=== PATIENT | male | born 1960 | race Caucasian/White ===

== ENCOUNTER 2022-04-20 11:34 | Emergency (ER) | payer OTHER, SELFPAY ==
[2022-04-20] VITALS (30 sets, daily range): BP systolic 124–155; BP diastolic 60–94; PULSE 86–105; RESP 16–40; TEMP 38.1–39; O2SAT 85–100
--- NOTE | ~2022-04-20 | XR_ITS ---
EXAMINATION: XR chest 2V DATE: 04/20/2022 12:38 INDICATION: Shortness of breath and chest tightness TECHNIQUE: PA and lateral views of the chest were obtained. COMPARISON: Chest radiograph dated 02/07/10 FINDINGS: Persistent bilateral perihilar bronchial wall thickening. No focal airspace opacities, pulmonary uche a, pleural effusion or pneumothorax. The cardiomediastinal silhouette is normal. Mild thoracic spondy losis. IMPRESSION: 1. Bilateral perihilar bronchial wall thickening without focal airspace opacities which could be seen with bronchitis, reactive airway disease/asthma or mild pulmonary edema. Reviewed, dictated and finalized at location A. ITALITY MANAGER IMPRESSION: 1. Bilateral perihilar bronchial wall thickening without focal airspace opaciti es which could be seen with bronchitis, reactive airway disease/asthma or mild pulmonary edema.
--- NOTE | 2022-04-20 11:52 | ECG_ITS ---
Measurements Intervals [place] Rate: 99 P: 2 NV: 128 QRS: 75 QRSD: 105 T: 53 QT: 327 QTc: 421 Interpretive Statements SINUS RHYTHM INCOMPLETE RIGHT BUNDLE BRANCH BLOCK BASELINE ARTIFACT- I, III, AVL, AVF, V4-V5 BORDERLINE ECG NO PREVIOUS ECG AVAILABLE FOR COMPARISON Electronically Signed On 04-20-2022 12:11:13 [employer] INTERN by Manny Frances D.O.
--- NOTE | 2022-04-20 12:46 | ED.SOB ---
HPI - SOB/Dyspnea General Chief Complaint: Shortness of Breath/Dyspnea Stated Complaint: annalee pneumonia again Time Seen by Provider: 04/20/22 12:01 History of Present Illness HPI Narrative: 61-year-old male presenting to the emergency department for evaluation of worsening cough and fever. Patient states symptoms just started yesterday. Patient reports he is a smoker. Patient states he has had his COVID vaccines along with influenza and pneumonia just a few days ago. Patient denies any chest pain. Patient denies any nausea vomit diarrhea. Related Data Allergies Allergy/AdvReac Type Severity Reaction Status Date / Time No Known Allergies Allergy Verified 10/06/18 09:21 Review of Systems Review of Systems: CONSTITUTIONAL: Denies fever, chills, or sweats. EYES: Denies visual changes, redness, or discharge. ENT: Denies rhinorrhea, congestion, sore throat, or otalgia. CARDIOVASCULAR: Denies chest pain, palpitations, or edema. RESPIRATORY: See HPI GASTROINTESTINAL: Denies abdominal pain, nausea, vomiting, or diarrhea. GENITOURINARY: Denies dysuria or hematuria. SKIN: Denies rash or itching. MUSCULOSKELETAL: Denies back pain, joint pain, or myalgia. NEUROLOGIC: Denies headache, numbness, or weakness. Exam Narrative: APPEARANCE: Well appearing, no pain, no distress, well-nourished. HEAD: normocephalic, atraumatic. EYES: PERRLA/EOMI, conjunctivae clear. NOSE: Normal no drainage EARS:TMS clear with good light reflex. THROAT: Pharynx clear, no exudate. NECK: Supple. No adenopathy, no masses. RESPIRATORY: Airway patent, respirations nonlabored. Minor wheeze. CARDIOVASCULAR: Regular rate and rhythm without murmurs rubs or gallops. ABDOMINAL: Soft, nontender, nondistended, normal bowel sounds MUSCULOSKELETAL: Moves all extremities. Strength/ROM intact, No edema, No calf tenderness. NEURO: Alert. Cranial nerves II through XII intact. Grossly intact SKIN: Warm, dry. Normal Color Course Course Emergency Course: Patient did test positive for influenza. Patient's x-ray was reviewed. Patient was able to ambulate in the emergency department with a stable pulse ox. Patient was updated on results of the work-up and was comfortable with the plan for discharge and close follow-up. Patient was treated for a COPD exacerbation but also provided Tamiflu for the influenza. Vital Signs Vital signs: Vital Signs Temperature 102.2 F H 04/20/22 11:51 Pulse Rate 105 H 04/20/22 11:51 Respiratory Rate 16 04/20/22 11:51 Blood Pressure 155/93 H 04/20/22 11:51 Pulse Oximetry 96 04/20/22 11:51 Oxygen Delivery Room Air 04/20/22 11:51 Temperature 100.5 F H 04/20/22 16:02 Pulse Rate 98 04/20/22 16:26 Respiratory Rate 17 04/20/22 16:26 Blood Pressure 135/60 04/20/22 16:01 Pulse Oximetry 100 04/20/22 16:26 Oxygen Delivery Room Air 04/20/22 11:51 MDM - SOB/Dyspnea Lab Data Attestation: I reviewed the patient's lab results. Result diagrams: 04/20/22 13:30 04/20/22 13:30 Labs: Lab Results 04/20/22 04/20/22 04/20/22 Range/Units 12:20 13:30 13:30 WBC 5.6 (4.5-10.0) K/mm3 RBC 4.72 (4.6-6.20) M/mm3 Hgb 14.2 (14.0-18.0) g/dL Hct 41.2 L (42.0-52.0) % MCV 87.3 (80-100) fl MCH 30.1 (26-34) pg MCHC 34.5 (32-36) g/dl RDW 12.6 (11.5-14.5) % Plt Count 166 (150-375) k/mm3 MPV 9.9 (7.4-10.4) fl Immature Gran % (Auto) 0.2 (0-0.5) % Neut % (Auto) 82.1 H (45.5-73.1) % Lymph % (Auto) 8.5 L (18.3-44.2) % [place] % (Auto) 8.5 (2.6-8.5) % Eos % (Auto) 0.2 (0-4.4) % Baso % (Auto) 0.5 (0.2-1.2) % Lymph # (Auto) 0.47 L (0.9-3.2) K/mm3 [place] # (Auto) 0.5 (0.1-0.6) K/mm3 Eos # (Auto) 0.0 (0-0.3) K/mm3 Baso # (Auto) 0.0 (0.0-0.1) K/mm3 Abs Immat Gran (auto) 0.01 (0.00-0.031) K/mm3 Absolute Neuts (auto) 4.6 (1.3-6.7) K/mm3 Absolute Nucleated RBC 0.0 (0.0-0.012) K/mm3 Nucleated RBC
[2022-04-20] MEDS: ALBUTEROL SULFATE NEB 2.5 MG/3 ML INH 5 MG INHALATION (13:02)
[2022-04-20 13:10] LABS: Influenza A QL RT-PCR Positive (Negative); Influenza B QL RT-PCR Negative (Negative); RSV RNA, RT-PCR Negative (Negative); SARS-CoV-2 RNA PCR Negative
--- NOTE | 2022-04-20 13:10 | PC.NURSE ---
multiple attempts at iv unsuccessful by several nurses unsuccessful
[2022-04-20 13:45] LABS: Basophils Percent Auto 0.5 % (0.2-1.2); Eosinophils Percent Auto 0.2 % (0-4.4); Hematocrit 41.2 % (42.0-52.0); Hemoglobin 14.2 g/dL (14.0-18.0); Immature Granulocyte Absolute 0.01 K/mm3 (0.00-0.031); Immature Granulocyte Percent A 0.2 % (0-0.5); Lymphocytes Absolute Auto 0.47 K/mm3 (0.9-3.2); Lymphocytes Percent Auto 8.5 % (18.3-44.2); Mean Corpuscular HGB Conc 34.5 g/dl (32-36); Mean Corpuscular Hemoglobin 30.1 pg (26-34); Mean Corpuscular Volume 87.3 fl (80-100); Mean Platelet Volume 9.9 fl (7.4-10.4); Monocytes Absolute Auto 0.5 K/mm3 (0.1-0.6); Monocytes Percent Auto 8.5 % (2.6-8.5); Neutrophils Absolute Auto 4.6 K/mm3 (1.3-6.7); Neutrophils Percent Auto 82.1 % (45.5-73.1); Platelet Count Result 166 k/mm3 (150-375); Red Blood Count 4.72 M/mm3 (4.6-6.20); Red Cell Distribution Width 12.6 % (11.5-14.5); White Blood Count 5.6 K/mm3 (4.5-10.0)
[2022-04-20 13:58] LABS: Alanine Aminotransferase 21 U/L (6-50); Albumin Level 4.5 g/dL (3.5-5.1); Alkaline Phosphatase 107 U/L (38-126); Anion Gap 10 mmol/L (8-16); Aspartate Amino Transferase 28 U/L (17-59); Bilirubin,Total 0.6 mg/dL (0.2-1.3); Blood Urea Nitrogen 15 mg/dL (9-20); Calcium 8.4 mg/dL (8.4-10.2); Carbon Dioxide 25 mmol/L (22-30); Chloride 98 mmol/L (98-107); Estimated CRCL calculation 78 ml/min; Estimated Glomerular Filt Rate > 60; Glucose 99 mg/dL (65-110); Potassium 3.8 mmol/L (3.4-5.0); Sodium 133 mmol/L (137-145)
[2022-04-20 13:59] LABS: Lactic Acid Reflex 1.8 mmol/L (0.7-2.0)
[2022-04-20] MEDS: predniSONE 40 MG, predniSONE 10 MG 50 MG PO (15:32)
[2022-04-20] MEDS: HYDROmorphone HCL INJ (*CRX) 1 MG/ML SYR 0.5 MG IV PUSH (15:33)
== END 2022-04-20 16:00 | disposition home or self-care (01) ==
PROVIDERS: Emergency Medicine; Emergency Provider Emergency Medicine; PCP Otolaryngology
DX: J10.1 Influenza due to other identified influenza virus with other respiratory manifestations (principal); J44.9 Chronic obstructive pulmonary disease, unspecified; Z20.822 Contact with and (suspected) exposure to COVID-19
CPT/HCPCS: 36415; 71046; 80053; 83605; 85025; 87040; 87637; 93005; 94640; 96365; 96375; 99284; J0131; J1170; J7512

== ENCOUNTER 2022-04-30 19:46 | Inpatient (IN) | payer OTHER, SELFPAY ==
--- NOTE | ~2022-04-30 | XR_ITS ---
XR chest 2V 04/30/2022 20:16 Indication: Cough and shortness of breath. Chest pain. Procedure: 2 view chest Comparison: 04/20/2022 Findings: Heart size normal. Right mid and lower airspace disease, compatible with pneumonia. No pleu ral effusion, edema or pneumothorax. No acute osseous abnormality. Impression: 1: Airspace disease right mid and lower lung, compatible with pneumonia Reviewed, dictated and finalized at location A. AY TRAFFIC CONTROLLER Impression: 1: Airspace disease right mid and lower lung, compatible with pneumonia
[2022-04-30 19:49] VITALS: BP 179/72; PULSE 103; RESP 18; TEMP 36.7; O2SAT 94
--- NOTE | 2022-04-30 19:53 | ECG_ITS ---
Measurements Intervals [place] [facility] Rate: 102 P: 63 LA: 138 QRS: 71 QRSD: 109 T: 50 QT: 316 QTc: 413 Interpretive Statements SINUS TACHYCARDIA POSSIBLE LEFT ATRIAL ENLARGEMENT [-0.1mV P WAVE IN V1/V2] BASELINE ARTIFACT IS PRESENT ABNORMAL RHYTHM ECG COMPARED TO ECG 04/20/2022 11:59:15 SINUS TACHYCARDIA NOW PRESENT Electronically Signed On 05-01-2022 10:18:49 HEAD MIXER by Amena Gabriel M.D.
[2022-04-30 20:37] VITALS: PULSE 89
--- NOTE | 2022-04-30 20:38 | PC.NURSE ---
Patient put on 2L oxygen via nasal cannula for comfort only. Patient's oxygen saturation within normal limits
--- NOTE | 2022-04-30 20:50 | ED.SOB ---
HPI - SOB/Dyspnea General Chief Complaint: Shortness of Breath/Dyspnea Stated Complaint: SOB Time Seen by Provider: 04/30/22 20:37 History of Present Illness HPI Narrative: This is a 61-year-old male without known significant past medical history, recently seen emergency department diagnosed with influenza A, returns emergency department complaining of cough productive of mucus, shortness of breath and some chest pain. He states he was at work when he became short of breath, associated with a sore type substernal chest pain without radiation. He denies any nausea or vomiting or lower extremity swelling. Related Data Allergies Allergy/AdvReac Type Severity Reaction Status Date / Time No Known Allergies Allergy Verified 10/06/18 09:21 Review of Systems Review of Systems: CONSTITUTIONAL: Denies fever, chills, or sweats. EYES: Denies visual changes, redness, or discharge. ENT: Rhinorrhea, congestion denies sore throat, or otalgia. CARDIOVASCULAR: Denies chest pain, palpitations, or edema. RESPIRATORY: cough and dyspnea. GASTROINTESTINAL: Denies abdominal pain, nausea, vomiting, or diarrhea. GENITOURINARY: Denies dysuria or hematuria. SKIN: Denies rash or itching. MUSCULOSKELETAL: Denies back pain, joint pain, or myalgia. NEUROLOGIC: Denies headache, numbness, dizziness, or weakness. PSYCHIATRIC: Denies anxiety or depression. PMFSH Social History Social History Smoking status: Former smoker Alcohol intake: never Substance use: never Exam Narrative: GENERAL: Well-developed, well-nourished, appears uncomfortable HEAD: Normocephalic, atraumatic. EYES: PERRLA and EOMI. ENT: Nares clear, no rhinorrhea or epistaxis. Mucous membranes moist. Oropharynx without tonsillar hypertrophy exudate or other lesions. NECK: Supple. No adenopathy or masses. No carotid bruits or JVD CHEST: Tachypneic with prolonged expiratory phase and end expiratory wheeze. No respiratory distress. No rales or rhonchi HEART: Regular rate and rhythm. No murmur heard. Normal peripheral pulses. ABDOMEN: Soft, nontender, nondistended, normal active bowel sounds. EXTREMITIES: Normal range of motion. No edema. SKIN: Warm, dry, no rash. NEURO: No focal deficits. Alert and oriented x3. PSYCH: Normal mood and affect. Course Course Emergency Course: 21:30 - Chest x-ray concerning for pneumonia. Reevaluated patient after nebs, he states he has only minimal improvement. Discussed patient with hospitalist, Dr. Bates who accepts admission. Vital Signs Vital signs: Vital Signs Temperature 98.1 F 04/30/22 19:49 Pulse Rate 103 H 04/30/22 19:49 Respiratory Rate 18 04/30/22 19:49 Blood Pressure 179/72 H 04/30/22 19:49 Pulse Oximetry 94 04/30/22 19:49 Temperature 98.1 F 04/30/22 19:49 Pulse Rate 92 04/30/22 23:15 Respiratory Rate 27 H 04/30/22 23:15 Blood Pressure 162/75 H 04/30/22 23:15 Pulse Oximetry 95 04/30/22 23:15 Oxygen Delivery Nasal Cannula 04/30/22 20:48 Oxygen Flow Rate 2 04/30/22 20:48 MDM - SOB/Dyspnea MDM Narrative Medical decision making narrative: Plan: Labs, imaging, nebs, EKG, troponin, reassess Differential Diagnosis Differential diagnosis: Likely acute exacerbation of chronic obstructive airways disease, community acquired pneumonia and other (Influenza, ACS, metabolic abnormality, other) Lab Data 04/30/22 21:02 04/30/22 21:02 Labs: Lab Results 04/30/22 04/30/22 04/30/22 Range/Units 21:02 21:02 22:19 WBC 14.9 H (4.5-10.0) K/mm3 RBC 4.23 L (4.6-6.20) M/mm3 Hgb 12.9 L (14.0-18.0) g/dL Hct 37.2 L (42.0-52.0) % MCV 87.9 (80-100) fl MCH 30.5 (26-34) pg MCHC 34.7 (32-36) g/dl RDW 12.5 (11.5-14.5) % Plt Count 285 D (150-375) k/mm3 MPV 9.0 (7.4-10.4) fl Immature Gran % (Auto) 0.9 H (0-0.5) % Neut % (Auto) 83.6 H (45.5-73.1) % Lymph % (
[2022-04-30] MEDS: ALBUTEROL SULFATE NEB 2.5 MG/3 ML INH 5 MG INHALATION (21:08)
[2022-04-30] MEDS: IPRATROPIUM BR 0.02% INH SOLN 0.5 MG/2.5 ML VIAL INHALATION (21:08)
[2022-04-30 21:09] VITALS: PULSE 90; RESP 21
[2022-04-30 21:16] LABS: Basophils Percent Auto 0.3 % (0.2-1.2); Eosinophils Absolute Auto 0.1 K/mm3 (0-0.3); Eosinophils Percent Auto 0.4 % (0-4.4); Hematocrit 37.2 % (42.0-52.0); Hemoglobin 12.9 g/dL (14.0-18.0); Immature Granulocyte Absolute 0.14 K/mm3 (0.00-0.031); Immature Granulocyte Percent A 0.9 % (0-0.5); Lymphocytes Absolute Auto 1.15 K/mm3 (0.9-3.2); Lymphocytes Percent Auto 7.7 % (18.3-44.2); Mean Corpuscular HGB Conc 34.7 g/dl (32-36); Mean Corpuscular Hemoglobin 30.5 pg (26-34); Mean Corpuscular Volume 87.9 fl (80-100); Monocytes Absolute Auto 1.1 K/mm3 (0.1-0.6); Monocytes Percent Auto 7.1 % (2.6-8.5); Neutrophils Absolute Auto 12.5 K/mm3 (1.3-6.7); Neutrophils Percent Auto 83.6 % (45.5-73.1); Platelet Count Result 285 k/mm3 (150-375); Red Blood Count 4.23 M/mm3 (4.6-6.20); Red Cell Distribution Width 12.5 % (11.5-14.5); White Blood Count 14.9 K/mm3 (4.5-10.0)
[2022-04-30 21:24] LABS: Alanine Aminotransferase 21 U/L (6-50); Albumin Level 3.5 g/dL (3.5-5.1); Alkaline Phosphatase 84 U/L (38-126); Anion Gap 7 mmol/L (8-16); Aspartate Amino Transferase 20 U/L (17-59); Bilirubin,Total 0.5 mg/dL (0.2-1.3); Blood Urea Nitrogen 13 mg/dL (9-20); Calcium 8.3 mg/dL (8.4-10.2); Carbon Dioxide 28 mmol/L (22-30); Chloride 98 mmol/L (98-107); Estimated CRCL calculation 87 ml/min; Estimated Glomerular Filt Rate > 60; Glucose 204 mg/dL (65-110); Potassium 3.7 mmol/L (3.4-5.0); Sodium 133 mmol/L (137-145)
[2022-04-30 21:27] VITALS: PULSE 92; RESP 16
[2022-04-30 21:36] LABS: Troponin I < 0.012 ng/mL (0.000-0.034)
--- NOTE | 2022-04-30 21:42 | PM.IMHP ---
H&P: HPI History of Present Illness Date/Time: 04/30/22 21:42 Chief Complaint: 61 years old with recent history of influenza diagnosed on 04/20/2022 patient was complaining of cough started 11 days ago worsening gradually associated with shortness of breath came to the ER was found to have influenza was given Tamiflu prednisone and albuterol inhaler patient continued to feel worse continued to have shortness of breath worsening gradually associated with wheezing and cough patient currently short of breath at rest requiring 2 L of oxygen at home patient is not on any oxygen chest x-ray showed pneumonia patient will be admitted to the hospital for further evaluation and treatment of pneumonia COPD exacerbation Review of Systems Review of Systems: Twelve system review was done negative except above [facility] Social History Social History Smoking status: Former smoker Alcohol intake: never Substance use: never Meds Home Medications and Allergies Home Medications Medication Instructions Recorded Confirmed Type albuterol sulfate 90 mcg/actuation 1 inh inhalation QID PRN shortness 04/20/22 Rx aerosol inhaler of breath or wheezing #6.7 grams benzonatate 100 mg capsule 100 mg PO Q6H PRN cough #14 caps 04/20/22 Rx oseltamivir 75 mg capsule (Tamiflu) 75 mg PO Q12H 5 days #10 caps 04/20/22 Rx prednisone 50 mg tablet 50 mg PO DAILY #5 tabs 04/20/22 Rx Allergies Allergy/AdvReac Type Severity Reaction Status Date / Time No Known Allergies Allergy Verified 10/06/18 09:21 Vital Signs Vital Signs - 24 hr 04/30/22 19:49 04/30/22 20:37 04/30/22 20:48 Temperature 98.1 F Pulse Rate 103 H 89 Respiratory Rate 18 Blood Pressure 179/72 H Pulse Oximetry 94 Oxygen Delivery Nasal Cannula Oxygen Flow Rate 2 04/30/22 21:09 04/30/22 21:27 Temperature Pulse Rate 90 92 Respiratory Rate 21 H 16 Blood Pressure Pulse Oximetry Oxygen Delivery Oxygen Flow Rate Exam Narrative: GENERAL: , in acute respiratory distress HEAD: Normocephalic, atraumatic. NECK: Supple. No adenopathy, no masses. RESPIRATORY: Airway patent, respirations nonlabored. Clear to auscultation bilaterally, no rales, rhonchi, wheezing. CARDIOVASCULAR: Regular rate and rhythm without murmurs, rubs, or gallops. Peripheral pulses 2+ and equal bilaterally. ABDOMINAL: Decreased air entry bilateral bilateral wheeze and crackles MUSCULOSKELETAL: Moves all extremities. SKIN: Warm, dry, normal color. No rashes. NEURO: A&O X3. Nonfocal PSYCHIATRIC: Appropriate mood and affect. Normal interaction. H&P: Results Labs Labs: Short CBC 04/30/22 Range/Units 21:02 WBC 14.9 H (4.5-10.0) K/mm3 Hgb 12.9 L (14.0-18.0) g/dL Hct 37.2 L (42.0-52.0) % Plt Count 285 D (150-375) k/mm3 BMP 04/30/22 21:02 Sodium 133 L Potassium 3.7 Chloride 98 Carbon Dioxide 28 BUN 13 Creatinine 0.80 Glucose 204 H Calcium 8.3 L Cardiac Enzymes 04/30/22 Range/Units 21:02 Troponin I < 0.012 (0.000-0.034) ng/mL Liver Function 04/30/22 Range/Units 21:02 Total Bilirubin 0.5 (0.2-1.3) mg/dL AST 20 (17-59) U/L ALT 21 (6-50) U/L Alkaline Phosphatase 84 (38-126) U/L Albumin 3.5 (3.5-5.1) g/dL Assessment and Plan Assessment and plan (1) Influenza A: Code(s): J10.1 - Influenza due to other identified influenza virus with other respiratory manifestations Status: Acute Assessment and Plan: Completed course of Tamiflu Conservative management nebulizer treatment steroid (2) Pneumonia: Code(s): J18.9 - Pneumonia, unspecified organism Status: Acute Assessment and Plan: Probable secondary bacterial infection will give IV Rocephin IV doxycycline get sputum culture blood culture (3) COPD exacerbation: Code(s): J44.1 - Chronic obstructive pulmonary disease with (acute) exacerbation
[2022-04-30 22:29] VITALS: BP 148/75; PULSE 91; RESP 18; O2SAT 98
[2022-04-30 23:15] VITALS: BP 162/75; PULSE 92; RESP 27; O2SAT 95
[2022-04-30 23:55] LABS: Procalcitonin 0.1 ng/mL
[2022-05-01] VITALS (19 sets, daily range): BP systolic 120–152; BP diastolic 48–71; PULSE 73–95; RESP 14–26; TEMP 36.2–37; O2SAT 92–100; BMI 25.4
[2022-05-01 00:04] LABS: SARS-CoV-2 RNA PCR Negative
--- NOTE | 2022-05-01 00:59 | ADMGEN ---
This patient, Cesar Amezquita, was admitted to 3 [facility] Surg Room 332-02. Patient/family oriented to hospital policies and general routines including ID bracelet, bed and alarms, visiting hours, pain management, procedures, bathroom and other care routines, personal items, smoking policy, room service/diet, and visiting hours. Information on how to activate the Rapid Response Team has been discussed. Patient/Family are encouraged to report perceived risks to care and to ask questions if they do not understand what they are told or what they should do.
[2022-05-01] MEDS: SODIUM CHLORIDE 0.9% IV 1,000 ML 100 ML IV CONT ×2 (01:07→11:50)
--- NOTE | 2022-05-01 01:41 | PC.NURSE ---
RN acknowledges order for telemetry; Provider did not initially admit to med/tele-currently no monitors available on unit. automatic machines supervisor notified.
[2022-05-01] MEDS: methylPREDNISolone SOD SUCC 40 MG VIAL IV PUSH ×3 (02:16→17:39)
[2022-05-01] MEDS: IPRATROPIUM BR 0.02% INH SOLN 0.5 MG/2.5 ML VIAL INHALATION ×3 (02:30→14:20)
[2022-05-01] MEDS: ALBUTEROL SULFATE NEB 2.5 MG/3 ML INH INHALATION ×3 (02:30→14:20)
[2022-05-01 07:02] LABS: Basophils Percent Auto 0.3 % (0.2-1.2); Eosinophils Percent Auto 0.1 % (0-4.4); Hemoglobin 12.2 g/dL (14.0-18.0); Immature Granulocyte Absolute 0.15 K/mm3 (0.00-0.031); Lymphocytes Absolute Auto 0.64 K/mm3 (0.9-3.2); Lymphocytes Percent Auto 4.3 % (18.3-44.2); Mean Corpuscular HGB Conc 33.9 g/dl (32-36); Mean Corpuscular Hemoglobin 29.3 pg (26-34); Mean Corpuscular Volume 86.3 fl (80-100); Mean Platelet Volume 9.2 fl (7.4-10.4); Monocytes Absolute Auto 0.5 K/mm3 (0.1-0.6); Neutrophils Absolute Auto 13.6 K/mm3 (1.3-6.7); Neutrophils Percent Auto 91.3 % (45.5-73.1); Platelet Count Result 309 k/mm3 (150-375); Red Blood Count 4.17 M/mm3 (4.6-6.20); Red Cell Distribution Width 12.4 % (11.5-14.5); White Blood Count 14.9 K/mm3 (4.5-10.0)
--- NOTE | 2022-05-01 07:12 | PM.IMPN ---
Progress Note: A&P Assessment and Plan (1) Influenza A: Code(s): J10.1 - Influenza due to other identified influenza virus with other respiratory manifestations Status: Acute Assessment and Plan: Completed course of Tamiflu x 5 days and 10 days post start of symptoms. Continue supportive care. Conservative management nebulizer treatment (2) Pneumonia: Qualifiers: Pneumonia type: due to unspecified organism Laterality: right Lung location: unspecified part of lung Qualified Code(s): J18.9 - Pneumonia, unspecified organism Code(s): J18.9 - Pneumonia, unspecified organism Status: Acute Assessment and Plan: Probable secondary bacterial infection following pneumonia. Continue IV antibiotics. MRSA nasal swab pending. sputum culture ordered and awaiting collection. blood culture pending. (3) COPD exacerbation: Code(s): J44.1 - Chronic obstructive pulmonary disease with (acute) exacerbation Status: Suspected Assessment and Plan: Presumed COPD exacerbation. He is a chronic smoker for more than 36 years. No formal PFTs and diagnosis is available. He has not seen a doctor in 18 years. Continue scheduled short-acting bronchodilator nebulizer treatment Continue IV solu-medrol Continue empiric IV antibiotics Mucinex BID (4) Acute respiratory failure with hypoxia: Code(s): J96.01 - Acute respiratory failure with hypoxia Status: Acute Assessment and Plan: Require 3 L of oxygen upon admission. This is most likely secondary to influenza, secondary bacterial pneumonia and probable COPD exacerbation Continue medical management as above. Wean O2 as tolerated to keep sats>92% (5) Tobacco dependence: Code(s): F17.200 - Nicotine dependence, unspecified, uncomplicated Status: Chronic Assessment and Plan: He reports he is a current smoker, but wants to quit. He has smoked at least 1 ppd for over 36 years. Smoking cessation counseling given for 5 minutes Plan CODE STATUS: FULL CODE Disposition: Observation. Estimated LOS >2 days Discharge destination: home when medically stable. Time Spent With Patient Time with patient: 25 - 35 minutes Subjective Date/time seen: 05/01/22 07:12 His breathing is somewhat better today. He still has dyspnea with minimal movement and exertion. He has a cough with nasty-looking sputum. He reports a desire to quit smoking. His appetite is not yet back to normal. No diarrhea, abd pain, N/V, chest pain, palpitations or dizziness. He reports taking and completing the pills he received from his last ED visit but does not think they helped. He states his breathing felt workse yesterday when he went to work. 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 Review of Systems Review of Systems: All systems reviewed & are unremarkable except as noted in HPI and below Exam Narrative: GENERAL: in no acute respiratory distress. Adult male sitting up in bed. O2 2L NC. HEENT: Normocephalic, atraumatic. Sclera anicteric. Pupils equal and round. Grossly normal hearing. Mucous membranes moist. NECK: Supple. No adenopathy, no masses. No JVD. RESPIRATORY: Airway patent, respirations 24 bpm. Lung sounds diminished with fine crackles RLL and RML. Scattered wheezing in all [place]. Prolonged expiratory phase. CARDIOVASCULAR: Regular rate and rhythm without murmurs, rubs, or gallops. Peripheral pulses 2+ and equal bilaterally. ABDOMINAL: Soft, round and nontender to palpation. Bowel sounds present in all quadrants. MUSCULOSKELETAL: Moves all extremities equally. Grossly normal ROM. No edema. SKIN: Warm, dry, normal color. No rashes. NEURO: A&O X3. No focal deficits. CN 2-12 grossly intact. PSYCHIATRIC: Appropriate mood and affect. Normal interaction. Objective Data Vital Signs Vital Signs: Vital Signs - 24 hr 04/30/22 19:49 04/30/22 20:37 04/30/22 20:48 Temperature 98.1 F Pulse Rate 103 H 89 Respirato
[2022-05-01 07:14] LABS: Alanine Aminotransferase 20 U/L (6-50); Albumin Level 3.5 g/dL (3.5-5.1); Alkaline Phosphatase 98 U/L (38-126); Anion Gap 9 mmol/L (8-16); Aspartate Amino Transferase 20 U/L (17-59); Bilirubin,Total 0.5 mg/dL (0.2-1.3); Blood Urea Nitrogen 10 mg/dL (9-20); Calcium 8.1 mg/dL (8.4-10.2); Carbon Dioxide 25 mmol/L (22-30); Chloride 100 mmol/L (98-107); Estimated CRCL calculation 102 ml/min; Estimated Glomerular Filt Rate > 60; Glucose 126 mg/dL (65-110); Potassium 3.8 mmol/L (3.4-5.0); Sodium 134 mmol/L (137-145)
[2022-05-01] MEDS: FAMOTIDINE 20 MG TABLET PO ×2 (10:00→21:15)
[2022-05-01] MEDS: guaiFENesin 12 HR 600 MG TABCR PO ×2 (10:00→21:15)
[2022-05-01] MEDS: ENOXAPARIN 40 MG/0.4 ML SYRINGE SUB-Q (11:51)
[2022-05-01] MEDS: cefTRIAXone 2 GM in SODIUM CHLORIDE 0.9% IV 100 ML 200 ML IVPB (21:15)
[2022-05-02] VITALS (9 sets, daily range): BP systolic 142–162; BP diastolic 62–66; PULSE 60–83; RESP 14–20; TEMP 36.1–36.5; O2SAT 93–97
[2022-05-02] MEDS: methylPREDNISolone SOD SUCC 40 MG VIAL IV PUSH (01:43)
[2022-05-02] MEDS: ALBUTEROL SULFATE NEB 2.5 MG/3 ML INH INHALATION ×2 (02:49→08:56)
[2022-05-02] MEDS: IPRATROPIUM BR 0.02% INH SOLN 0.5 MG/2.5 ML VIAL INHALATION ×2 (02:49→08:56)
--- NOTE | 2022-05-02 07:37 | PM.IMPN ---
Progress Note: A&P Assessment and Plan (1) Pneumonia: Qualifiers: Laterality: right Lung location: unspecified part of lung Pneumonia type: due to unspecified organism Qualified Code(s): J18.9 - Pneumonia, unspecified organism Code(s): J18.9 - Pneumonia, unspecified organism Status: Acute Assessment and Plan: secondary bacterial infection following influenza. Treated with IV Rocephin and IV Vancomycin. Improving. Transition to oral Azithromycin x5 days and oral Augmentin x 5 days for common antimicrobial coverage. MRSA nasal swab negative. sputum culture mixed rai to date. blood culture negative to date. (2) Influenza A: Code(s): J10.1 - Influenza due to other identified influenza virus with other respiratory manifestations Status: Acute Assessment and Plan: Completed course of Tamiflu x 5 days and 11 days post start of symptoms. Continue supportive care. Conservative management nebulizer treatment (3) COPD exacerbation: Code(s): J44.1 - Chronic obstructive pulmonary disease with (acute) exacerbation Status: Suspected Assessment and Plan: Presumed COPD exacerbation. He is a chronic smoker for more than 36 years. No formal PFTs and diagnosis is available. He has not seen a doctor in 18 years. Continue scheduled short-acting bronchodilator nebulizer treatment Continue IV solu-medrol Q12 for today, then change to prednisone 40 mg PO daily tomorrow 05/03/22 and complete 5 day steroid course Continue empiric antibiotics for pneumonia Mucinex BID (4) Acute respiratory failure with hypoxia: Code(s): J96.01 - Acute respiratory failure with hypoxia Status: Acute Assessment and Plan: Require 3 L of oxygen upon admission. This is most likely secondary to influenza, secondary bacterial pneumonia and probable COPD exacerbation Continue medical management as above. Wean O2 as tolerated to keep sats>92%. Weaned to room air. Monitor spO2 intermittently at rest and with activity. (5) Tobacco dependence: Code(s): F17.200 - Nicotine dependence, unspecified, uncomplicated Status: Chronic Assessment and Plan: He reports he is a current smoker, but wants to quit. He has smoked at least 1 ppd for over 36 years. Smoking cessation counseling given for 5 minutes Plan CODE STATUS: FULL CODE Disposition: Observation. Probable discharge tomorrow if still improving. Discharge destination: home when medically stable. Time Spent With Patient Time with patient: 15 - 25 minutes Subjective Date/time seen: 05/02/22 07:37 His breathing is improving. He is off oxygen, but still feels winded and lightheaded with exertion. He was lightheaded in the shower as well. No chest pain, palpitations, MEYERS, sore throat, N/V/D or abdominal pain. He still has a productive cough that is improving. Review of Systems Review of Systems: All systems reviewed & are unremarkable except as noted in HPI and below Exam Narrative: GENERAL: in no acute respiratory distress. sitting up in bed. O2 2L NC. HEENT: Normocephalic, Sclera anicteric. Pupils equal and round. Mucous membranes moist. NECK: Supple. No adenopathy. RESPIRATORY: Airway patent, respirations regular at rest. Lung sounds diminished with fine crackles RLL and RML. Improved air entry. Faint expiratory wheeze RLL. Prolonged expiratory phase. CARDIOVASCULAR: Regular rate and rhythm normal S1 and S2 without murmurs, rubs, or gallops. Peripheral pulses 2+ and equal bilaterally. ABDOMINAL: Soft, round and nontender to palpation. Bowel sounds present in all quadrants. MUSCULOSKELETAL: Moves all extremities equally. Grossly normal ROM. No edema, erythema or calf tenderness. SKIN: Warm, dry, normal color. No rashes. NEURO: A&O X3. No focal deficits. PSYCHIATRIC: Appropriate mood and affect. Objective Data Vital Signs Vital Signs: Vital Signs - 24 hr 05/01/22 09:54 05/01/22 09
[2022-05-02 11:52] LABS: Basophils Percent Auto 0.2 % (0.2-1.2); Hematocrit 39.4 % (42.0-52.0); Hemoglobin 13.3 g/dL (14.0-18.0); Immature Granulocyte Absolute 0.19 K/mm3 (0.00-0.031); Immature Granulocyte Percent A 1.3 % (0-0.5); Lymphocytes Absolute Auto 1.03 K/mm3 (0.9-3.2); Mean Corpuscular HGB Conc 33.8 g/dl (32-36); Mean Corpuscular Hemoglobin 29.6 pg (26-34); Mean Corpuscular Volume 87.6 fl (80-100); Mean Platelet Volume 9.2 fl (7.4-10.4); Neutrophils Absolute Auto 12.5 K/mm3 (1.3-6.7); Neutrophils Percent Auto 84.5 % (45.5-73.1); Platelet Count Result 355 k/mm3 (150-375); Red Cell Distribution Width 12.5 % (11.5-14.5); White Blood Count 14.8 K/mm3 (4.5-10.0)
[2022-05-02 12:03] LABS: Alanine Aminotransferase 25 U/L (6-50); Albumin Level 3.9 g/dL (3.5-5.1); Alkaline Phosphatase 87 U/L (38-126); Anion Gap 10 mmol/L (8-16); Aspartate Amino Transferase 21 U/L (17-59); Bilirubin,Total 0.2 mg/dL (0.2-1.3); Blood Urea Nitrogen 18 mg/dL (9-20); Calcium 8.9 mg/dL (8.4-10.2); Carbon Dioxide 24 mmol/L (22-30); Chloride 103 mmol/L (98-107); Estimated CRCL calculation 90 ml/min; Estimated Glomerular Filt Rate > 60; Glucose 162 mg/dL (65-110); Potassium 4.1 mmol/L (3.4-5.0); Sodium 137 mmol/L (137-145)
[2022-05-02] MEDS: guaiFENesin 12 HR 600 MG TABCR PO ×2 (12:12→21:42)
[2022-05-02] MEDS: ENOXAPARIN 40 MG/0.4 ML SYRINGE SUB-Q (12:12)
[2022-05-02] MEDS: FAMOTIDINE 20 MG TABLET PO ×2 (12:12→21:43)
[2022-05-02 12:59] LABS: Vancomycin Trough 11.4 ug/mL (10.0-20.0)
[2022-05-02] MEDS: AZITHROMYCIN 250 MG TABLET 500 MG PO (14:00)
[2022-05-02] MEDS: AMOXICILLIN/CLAVULANATE K 875-125 MG TAB 1 TABLET PO (21:42)
[2022-05-03 05:44] VITALS: BP 150/81; PULSE 74; RESP 16; TEMP 36.4; O2SAT 99
[2022-05-03 08:18] LABS: Alanine Aminotransferase 24 U/L (6-50); Albumin Level 3.6 g/dL (3.5-5.1); Alkaline Phosphatase 70 U/L (38-126); Anion Gap 5 mmol/L (8-16); Aspartate Amino Transferase 25 U/L (17-59); Basophils Absolute Auto 0.1 K/mm3 (0.0-0.1); Basophils Percent Auto 0.5 % (0.2-1.2); Bilirubin,Total 0.5 mg/dL (0.2-1.3); Blood Urea Nitrogen 17 mg/dL (9-20); Calcium 8.4 mg/dL (8.4-10.2); Carbon Dioxide 27 mmol/L (22-30); Chloride 100 mmol/L (98-107); Eosinophils Percent Auto 0.3 % (0-4.4); Estimated CRCL calculation 90 ml/min; Estimated Glomerular Filt Rate > 60; Glucose 75 mg/dL (65-110); Hematocrit 40.7 % (42.0-52.0); Hemoglobin 13.1 g/dL (14.0-18.0); Immature Granulocyte Absolute 0.12 K/mm3 (0.00-0.031); Immature Granulocyte Percent A 1.3 % (0-0.5); Immature Platelet Fraction Pct 3.9 % (0.9-11.2); Lymphocytes Absolute Auto 1.69 K/mm3 (0.9-3.2); Lymphocytes Percent Auto 17.9 % (18.3-44.2); Mean Corpuscular HGB Conc 32.2 g/dl (32-36); Mean Corpuscular Hemoglobin 29.4 pg (26-34); Mean Corpuscular Volume 91.5 fl (80-100); Monocytes Absolute Auto 0.9 K/mm3 (0.1-0.6); Monocytes Percent Auto 9.5 % (2.6-8.5); Neutrophils Absolute Auto 6.7 K/mm3 (1.3-6.7); Neutrophils Percent Auto 70.5 % (45.5-73.1); Platelet Count Result 304 k/mm3 (150-375); Red Blood Count 4.45 M/mm3 (4.6-6.20); Red Cell Distribution Width 12.7 % (11.5-14.5); Sodium 132 mmol/L (137-145); White Blood Count 9.4 K/mm3 (4.5-10.0)
[2022-05-03] MEDS: FAMOTIDINE 20 MG TABLET PO (08:29)
[2022-05-03] MEDS: guaiFENesin 12 HR 600 MG TABCR PO (08:29)
[2022-05-03] MEDS: predniSONE 20 MG TABLET 40 MG PO (08:29)
[2022-05-03] MEDS: AZITHROMYCIN 250 MG TABLET PO ×2 (08:29→11:29)
[2022-05-03] MEDS: AMOXICILLIN/CLAVULANATE K 875-125 MG TAB 1 TABLET PO (08:29)
[2022-05-03] MEDS: ENOXAPARIN 40 MG/0.4 ML SYRINGE SUB-Q (08:33)
--- NOTE | 2022-05-03 10:46 | PM.DS ---
DS: Admitting Diagnosis Discharge Date 05/03/22 1046 Admitting Diagnosis Influenza APneumonia COPD exacerbation Acute respiratory failure with hypoxia DS: Discharge Diagnosis Discharge Diagnosis (1) Pneumonia: Qualifiers: Laterality: right Lung location: unspecified part of lung Pneumonia type: due to unspecified organism Qualified Code(s): J18.9 - Pneumonia, unspecified organism Code(s): J18.9 - Pneumonia, unspecified organism Status: Acute Assessment and Plan: secondary bacterial infection following influenza pneumonia. Treated with IV Rocephin and IV Vancomycin. Improving. Transitioned to oral Azithromycin x5 days and oral Augmentin x 5 days for common antimicrobial coverage. MRSA nasal swab negative. sputum culture mixed rai to date. blood culture negative to date. (2) Influenza A: Code(s): J10.1 - Influenza due to other identified influenza virus with other respiratory manifestations Status: Acute Assessment and Plan: Completed course of Tamiflu x 5 days and 11 days post start of symptoms. Given supportive care with mucolytics and analgesics treated with nebulizer treatment (3) COPD exacerbation: Code(s): J44.1 - Chronic obstructive pulmonary disease with (acute) exacerbation Status: Suspected Assessment and Plan: Presumed COPD exacerbation. He is a chronic smoker for more than 36 years. No formal PFTs and diagnosis is available. He has not seen a doctor in 18 years. Continue scheduled short-acting bronchodilator nebulizer treatment Initiated on IV solu-medrol Q12 and then changed to prednisone 40 mg PO daily on 05/03/22 and complete 5 day steroid course Continued empiric antibiotics for pneumonia Mucinex BID (4) Acute respiratory failure with hypoxia: Code(s): J96.01 - Acute respiratory failure with hypoxia Status: Acute Assessment and Plan: Required 3 L of oxygen upon admission. This is most likely secondary to influenza, secondary bacterial pneumonia and probable COPD exacerbation Continue medical management as above. Continued O2 as tolerated to keep sats>92%. Weaned to room air with stable spO2 at rest and with activity. (5) Tobacco dependence: Code(s): F17.200 - Nicotine dependence, unspecified, uncomplicated Status: Chronic Assessment and Plan: He is a current smoker, but wants to quit. He has smoked at least 1 ppd for over 36 years. Smoking cessation counseling given for 5 minutes DS: Summary Hospital Course Reason for hospitalization: shortness of breath Hospital Course: Cesar Amezquita is a 61 years old with recent history of influenza diagnosed on 04/20/2022 in our ER, he was given Tamiflu, prednisone and albuterol inhaler then discharged home. He presented to the ED this time for persistent cough and worsening shortness of breath. He continued to have shortness of breath associated with wheezing. In the ED, he required 2-3 L of oxygen. He does not use oxygen at home. He had associated sore throat, substernal chest pain without radiation, and sputum production.? He denied nausea, vomiting or lower extremity swelling. A chest x-ray suggested pneumonia. Lab work showed WBC 14.8 and nonfasting glucose 204. He was referred for management of bacterial pneumonia, hypoxia and suspected COPD exacerbation. He was treated with IV rocephin and IV vancomycin. This was transitioned to oral augmentin and azithromycin for atypical coverage x 5 days. Prednisone and duonebs scheduled were continued. He was counseled to quit smoking. Wheezing and shortness of breath improved by discharge and he was weaned to room air with spO2>92% at rest and with activity. The patient does not have a PCP and was counseled to obtain one for health management. Fasting glucose was 75 to 126 mg/dL. He was discharged home on oral antibiotics and in stable condition. Status at Discharge Cognitive/behavioral status at
== END 2022-05-03 12:05 | disposition home or self-care (01) | DRG 193 ==
LOC: ANHED 22:15 → ANH3MEDSUR 05-01 00:42
PROVIDERS: Emergency Medicine; Admitting Provider Internal Medicine; Emergency Provider Preventive Medicine Aerospace Medicine; Visit Provider Nurse Practitioner Family
DX: J10.08 Influenza due to other identified influenza virus with other specified pneumonia (principal); J96.01 Acute respiratory failure with hypoxia; J15.9 Unspecified bacterial pneumonia; J44.0 Chronic obstructive pulmonary disease with (acute) lower respiratory infection; J44.1 Chronic obstructive pulmonary disease with (acute) exacerbation; F17.210 Nicotine dependence, cigarettes, uncomplicated; Z20.822 Contact with and (suspected) exposure to COVID-19
CPT/HCPCS: 36415; 71046; 80053; 80202; 84145; 84484; 85025; 85055; 87040; 87070; 87081; 87205; 93005; 94640; 96361; 96365; 96366; 96372; 96374; 96375; 96376; 99285; A9270; G0378; J0456; J0696; J1650; J2920; J3370; J7030; J7512; U0003; U0005

== ENCOUNTER 2023-10-25 12:22 | Emergency (ER) | payer OTHER, SELFPAY ==
[2023-10-25 12:24] VITALS: BP 184/74; PULSE 73; RESP 18; TEMP 36.5; O2SAT 98
--- NOTE | 2023-10-25 14:26 | ED.EXTPRO ---
HPI - Extremity Problem General Chief complaint: Extremity Problem,Nontraumatic Stated complaint: R arm pain Time Seen by Provider: 10/25/23 14:09 History of Present Illness HPI Narrative: Patient is a 63-year-old male who presents to the emergency department this afternoon complaining of some swelling and redness to his right forearm. Patient states that he noticed the symptoms approximately 3 weeks ago and states that he had something similar to his left forearm but that healed on its own. The redness and swelling on his right forearm has not healed. Patient states that a week ago it actually looked much worse and was way more swollen and has improved since. Right forearm does have some your edema and clear/yellow drainage consistent with cellulitis/abscess. 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 Patient also admits that he has been scratching this area a lot which may have precipitated the symptoms he denies any fevers or chills at home. Denies any history of IV drug use. Patient denies any additional symptoms or concerns at this time. Related Data Allergies Allergy/AdvReac Type Severity Reaction Status Date / Time No Known Allergies Allergy Verified 10/25/23 13:52 Review of Systems Review of Systems: All systems are reviewed and are negative unless stated otherwise in the HPI. [facility] Past Medical History Medical History Kidney stones Tobacco dependence Family History Family History Daughter Diabetes mellitus Mother Diabetes mellitus Father Cancer Sibling Cancer Social History Social History Smoking packs per day: 3.5 Smoking cigarettes per day: 70.0 Years smoked: 50 Smoking pack-years: 175.00 Smoking status: Current every day smoker Tobacco type: cigarettes Alcohol intake: current Alcohol use details: rarely Substance use: never Substance use type: does not use Lack of Transportation: No Lack of Food: Never True Current Housing: I Have Housing Concerned About Future Housing: No Difficulty Paying Gas/Electric Bills: No Difficulty Paying for Meds: No Currently Unemployed: No Education: High School Diploma/GED Difficulty w/ Childcare or Family Care: No Living arrangements: with family Additional living arrangements comments: Sister Occupation/Education: occupation Gender identity (if verbalized by the patient): Male Spiritual care concerns: No Agree to blood products: Yes Exam Narrative: General: Alert, awake, afebrile, in no acute distress. HEENT: PERRL, no rhinorrhea, no post nasal drip, oropharynx clear. Cardiovascular: Regular rate and rhythm, no murmurs, rubs or gallops, no peripheral edema. Respiratory: Clear to auscultation bilaterally, no tachypnea, no wheezing, no rhonchi, no rubs, no respiratory distress. Abdomen: Soft, nontender, nondistended, no rebound, no guarding, no peritoneal signs. Musculoskeletal: Area of erythema with some clear/yellow drainage along the patient's right forearm measuring approximately 3 x 3 in. Patient is neurovascularly intact, intact right radial and ulnar pulses. Skin: No rashes or petechia, no signs of infection. Neurological: Alert and oriented to person, place, and time. Follows all commands. No focal deficits, speech is clear and fluent. Course Vital Signs Vital signs: Vital Signs Temperature 97.7 F 10/25/23 12:24 Pulse Rate 73 10/25/23 12:24 Respiratory Rate 18 10/25/23 12:24 Blood Pressure 184/74 H 10/25/23 12:24 Pulse Oximetry 98 10/25/23 12:24 Oxygen Delivery Room Air 10/25/23 12:24 Temperature 97.7 F 10/25/23 12:24 Pulse Rate 73 10/25/23 12:24 Respiratory Rate 18 10/25/23 12:24 Blood Pressure 184/74 H 10/24
== END 2023-10-25 14:36 | disposition home or self-care (01) ==
LOC: ANHED 14:30
PROVIDERS: Emergency Provider Emergency Medicine; PCP Family Medicine
DX: L03.113 Cellulitis of right upper limb (principal); F17.210 Nicotine dependence, cigarettes, uncomplicated; Z87.442 Personal history of urinary calculi
CPT/HCPCS: 99283

== ENCOUNTER 2025-05-13 13:22 | Emergency (ER) | payer OTHER, SELFPAY ==
--- NOTE | ~2025-05-13 | CT_ITS ---
EXAMINATION: CT cervical spine wo con COMPARISON: None HISTORY: heavy lifting; pain rad from neck to both arms TECHNIQUE: Axial images were obtained through the spine without IV contrast. Coronal, sagittal reconstruction images were obtained from the axial views. CT scan performed using dose optimization techniques including the following automated exposure control; adjustment of mA and/or kV; use of iterative reconstruction technique. Automatic exposure control was used to reduce radiation dose. Permanent radiation dose record is archived to PACS. FINDINGS: Grade 1 anterolisthesis of C4 on C5 C5 on C6, no fracture is identified. Minimal loss of disc height C3-4 C4-5 and C5-6 with mild canal and foraminal stenosis. Soft tissues unremarkable. The lung apices demonstrate chronic changes with areas of cystic change. Impression: No acute abnormality. Reviewed, dictated and finalized at location P. UTER VIDEO GAME DESIGNER Impression: No acute abnormality.
--- NOTE | ~2025-05-13 | CT_ITS ---
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 Technique: Axial images were obtained of the spine per protocol. One or more of the following dose reduction techniques were used: automated exposure control, adjustment of the mA and/or kV according to patient size, use of iterative reconstruction technique. Unless otherwise stated, incidental findings do not require dedicated follow up imaging Findings: There is no fracture or subluxation. Minimal loss of vertebral height and disc heights. The disc heights are intact. Soft tissues the lung apices demonstrate chronic changes with emphysematous changes and pulmonary fibrotic changes.There are bilateral renal calculi with calcified splenic granulomas with calcified mediastinal lymph nodes noted probably related to sequelae of previous granulomatous disease. No severe canal or foraminal stenosis Impression: No acute abnormality. Reviewed, dictated and finalized at location P. HER MACHINE OPERATOR Impression: No acute abnormality.
[2025-05-13 13:26] VITALS: BP 174/62; PULSE 76; RESP 18; TEMP 36.4; O2SAT 97
[2025-05-13 14:24] LABS: Hematocrit 41.3 % (42.0-52.0); Hemoglobin 13.7 g/dL (14.0-18.0); Immature Granulocyte Percent A 0.8 % (0-0.5); Lymphocytes Absolute Auto 1.39 K/mm3 (0.9-3.2); Mean Corpuscular HGB Conc 33.2 g/dl (32-36); Mean Corpuscular Hemoglobin 29.5 pg (26-34); Mean Corpuscular Volume 88.8 fl (80-100); Nucleated Red Blood Cells Absolute Auto 0.000 K/mm3 (0.0-0.012); Nucleated Red Blood Cells Perc 0.0 % (0.0-0.2); Platelet Count Result 259 k/mm3 (150-375); Red Blood Count 4.65 M/mm3 (4.6-6.20); White Blood Count 7.4 K/mm3 (4.5-10.0)
[2025-05-13 14:42] LABS: Anion Gap 4 mmol/L (4-12); Blood Urea Nitrogen 13 mg/dL (9-20); Calcium 8.7 mg/dL (8.4-10.2); Carbon Dioxide 31 mmol/L (22-30); Chloride 100 mmol/L (98-107); Estimated CRCL calculation 87 ml/min; Estimated Glomerular Filt Rate > 60; Glucose 90 mg/dL (65-110); Potassium 3.8 mmol/L (3.4-5.0); Sodium 135 mmol/L (137-145)
[2025-05-13] MEDS: KETOROLAC 15 MG/ML VIAL (*BKC) 10 MG IV PUSH (14:59)
[2025-05-13] MEDS: dexAMETHasone SOD PHOS INJ 10 MG/ML 1 ML VIAL IV PUSH (14:59)
--- NOTE | 2025-05-13 16:14 | ED_ITS ---
HPI - Extremity Problem General Chief complaint: Extremity Problem,Nontraumatic Stated complaint: PAIN ALL OVER Time Seen by Provider: 05/13/25 13:43 History of Present Illness HPI Narrative: Patient presents here because he has been doing a lot of heavy lifting and his work, and has subsequently started having a lot of pain going from his neck and lower back that goes down to his arms and legs; no weakness. No difficulties urinating. Related Data Allergies Allergy/AdvReac Type Severity Reaction Status Date / Time No Known Allergies Allergy Verified 05/13/25 13:23 Review of Systems 2 Review of Systems: All systems reviewed & are unremarkable except as noted in HPI and below Exam 2 Narrative: EXAMINATION OF ORGAN SYSTEMS/BODY AREAS: Constitutional: Vital signs per nursing GENERAL:[No acute distress, non-toxic appearing.] HEAD: Normal with no signs of head trauma. EYES: EOMI, conjunctiva normal ENT: Hearing grossly intact LUNGS: Nonlabored breathing. HEART: [Regular rate and rhythm] ABD: [Soft], [nontender to palpation] EXT: Normal range of motion SKIN: [No rashes or lesions.] NEURO: [Alert. No gross focal sensory or strength deficits.] Ambulating with normal gait. PSYCH: Normal affect Course Vital Signs Vital signs: Vital Signs Temperature 97.6 F 05/13/25 13:26 Pulse Rate 76 05/13/25 13:26 Respiratory Rate 18 05/13/25 13:26 Blood Pressure 174/62 H 05/13/25 13:26 Pulse Oximetry 97 05/13/25 13:26 Oxygen Delivery Room Air 05/13/25 13:26 Temperature 97.6 F 05/13/25 13:26 Pulse Rate 76 05/13/25 13:26 Respiratory Rate 18 05/13/25 13:26 Blood Pressure 174/62 H 05/13/25 13:26 Pulse Oximetry 97 05/13/25 13:26 Oxygen Delivery Room Air 05/13/25 13:26 MDM MDM Narrative Medical decision making narrative: ED COURSE AND MEDICAL DECISION MAKINM with acute back pain. Normal motor and sensory exam. Patient able to ambulate. No evidence of acute cord compression, osteomyelitis/discitis or cauda equina without saddle anesthesia, urinary retention/incontinence, numbness/tingling in lower extremities, fever, history of IV drug use, cancer or immunosuppression. Doubt AAA or aortic dissection without severe pain/discomfort or any neurovascular deficits. [Ketorolac 10mg IV] given for symptomatic relief. Will also give dose of steroids for radiculopathy. CT C, T, L-spine without acute abnormality. On reevaluation, the symptoms are improved. Patient is able to rest more comfortably. Ambulating without difficulty. Patient is given return precautions and instructed to come back at any point in time for worsening pain, fevers, weakness, difficulty walking, urinary or fecal incontinence. Patient expressed understanding of instructions. Follow-up to neurosurgery provided. Patient did also have high blood pressure here however he has no history of this but does not see a doctor. Counseled to follow-up with primary care doctor for further evaluation of this. Return precautions provided. Differential Diagnosis Differential Diagnosis: Radiculopathy, MSK strain, 0 herniated disc, arthritis Lab Data 05/13/25 14:19 05/13/25 14:19 Labs: Lab Results 05/13/25 Range/Units 14:19 WBC 7.4 (4.5-10.0) K/mm3 RBC 4.65 (4.6-6.20) M/mm3 Hgb 13.7 L (14.0-18.0) g/dL Hct 41.3 L (42.0-52.0) % MCV 88.8 (80-100) fl MCH 29.5 (26-34) pg MCHC 33.2 (32-36) g/dl RDW 12.6 (11.5-14.5) % Plt Count 259 (150-375) k/mm3 MPV 9.1 (7.4-10.4) fl Immature Gran % (Auto) 0.8 H (0-0.5) % Neut % (Auto) 67.4 (45.5-73.1) % Lymph % (Auto) 18.9 (18.3-44.2) % [place] % (Auto) 8.7 H (2.6-8.5) % Eos % (Auto) 3.3 (0-4.4) % Baso % (Auto) 0.9 (0.2-1.2) % Lymph # (Auto) 1.39 (0.9-3.2) K/mm3 [place] # (Auto) 0.6 (0.1-0.6) K/mm3 Eos # (Auto) 0.2 (0-0.3) K/mm3 Baso # (Auto) 0.1 (0.0-0.1) K/mm3 Abs Immat Gran (auto) 0.06 H (0.00-0.031) K/mm3 Absolute Neuts (auto) 5.0 (1.3-6.7) K/mm3 Absolute Nucleated RBC 0.000 (0.0-0.012) K/mm3 Nucleated RBC % 0.0 (0.0-0.2) % Sodium 135 L (137-145) mmol/L Potassium 3.8 (3.4-5.0) mmol/L Chloride 100 (98-107) mmol/L Carbon Dioxide 31 H (22-30) mmol/L Anion Gap 4 (4-12) mmol/L BUN 13 (9-20) mg/dL Creatinine 0.79 (0.7-1.3) mg/dL Estim Creat Clear Calc 87 ml/min Estimated GFR > 60 (59 - ) Glucose 90 (65-110) mg/dL Calcium 8.7 (8.4-10.2) mg/dL Imaging Data Radiologist's impression: ITS Impressions Cervical Spine CT 05/13/25 14:30 Impression: No acute abnormality. Thoracic/Lumbar Spine CT 05/13/25 14:37 Impression: No acute abnormality. Discharge Plan Discharge Clinical Impression: Radiculopathy Patient Disposition: Home Condition: Stable Instructions: Lumbar Radiculopathy (ED), Cervical Radiculopathy (ED) Additional Instructions: Please follow up with the spine doctor; try the medications as prescribed. You can always return for any further issues. Patient Language: [place] Prescriptions: New methylprednisolone [Medrol (Sidney)] 4 mg tablets,dose pack See Rx Instructions .ROUTE .COMPLEX Qty: 21 0RF Rx Instructions: orally per package directions acetaminophen [Tylenol Extra Strength] 500 mg tablet 1,000 mg PO Q6H PRN (Reason: pain) Qty: 50 0RF methocarbamol 750 mg tablet 750 mg PO TID PRN (Reason: muscle spasm) Qty: 30 0RF Follow-up/Referrals: PHYSICIAN,CONTRACT COORDINATOR [Primary Care Provider, Internal Medicine] Cha Stephen MD [Physician, Neurosurgery] - 3 Days Stand Alone Forms: Work/School Release IP
== END 2025-05-13 15:12 | disposition home or self-care (01) ==
PROVIDERS: Emergency Provider Emergency Medicine
DX: M54.12 Radiculopathy, cervical region (principal); M54.16 Radiculopathy, lumbar region
CPT/HCPCS: 36415; 72125; 72128; 72131; 80048; 85025; 96374; 96375; 99284; J1100; J1885